=== PATIENT | female | born 1950 | race Caucasian/White ===

== ENCOUNTER 2019-05-09 09:05 | Day surgery (SDC) | payer OTHER ==
[2019-05-09] MEDS ORDERED: Ringers Lactate 1,000 ML IV ONE (09:31)
[2019-05-09] MEDS ORDERED: NA CHLORIDE 0.9% 1,000 ML ONE (09:46)
[2019-05-09] MEDS ORDERED: LIDOCAINE 1% MPF 5 ML VIAL ONE (11:04)
[2019-05-09] MEDS ORDERED: ETOMIDATE 20 MG/10 ML VIAL IV ONE (11:04)
[2019-05-09] MEDS ORDERED: MIDAZOLAM HCL 2 MG/2 ML INJ ONE (11:04)
[2019-05-09] MEDS ORDERED: FENTANYL CITR 100 MCG/2 ML ONE (11:04)
--- NOTE | 2019-05-09 11:29 | ENDO RPT ---
[address], [address] EGD PROCEDURE REPORT EXAM DATE: 05/09/2019 PATIENT NAME: Chica Street MR#: [id number] BIRTHDATE: 1950 ATTENDING: Jan Gallegos Dr STATUS: outpatient SCIENTIFIC LABORATORY SUPERVISOR: Emmy Pa IT OPERATIONS MANAGER, Sangita Bazzi IT OPERATIONS MANAGER, Gabriela Hood RN, and Erika Adams RN INDICATIONS: The patient is a 68 yr old Female here for an EGD due to GERD and weight loss PROCEDURE PERFORMED: EGD with biopsy MEDICATIONS: Per Anesthesia. TOPICAL ANESTHETIC: none CONSENT: The patient understands the risks and benefits of the procedure and understands that these risks include, but are not limited to: sedation, allergic reaction, infection, perforation and/or bleeding. Alternative means of evaluation and treatment include, among others: physical exam, x-rays, and/or surgical intervention. The patient elects to proceed with this endoscopic procedure. DESCRIPTION OF PROCEDURE: During intra-op preparation period all mechanical medical equipment was checked for proper function. Hand hygiene and appropriate measures for infection prevention was taken. Procedure, possible complications, and alternatives including but not limited to the possibility of bleeding, perforation, tear, infection, sepsis, need for surgery, need for blood transfusion, and anesthesia related complications were explained to the patient. After the risks, benefits and alternatives of the procedure were thoroughly explained, Informed consent was verified, confirmed and timeout was successfully executed by the treatment team. The patient was placed in the left lateral position. The patient was anesthetized with topical anesthesia. Through the anesthetized oropharyngeal area, the scope was passed without any difficulty. The [id number] ([id number]) endoscope was introduced through the mouth and advanced to the second portion of the duodenum. Retroflexed views revealed a small hiatal hernia. The gastroscope was then slowly withdrawn and removed. Retained food was present in the body of the stomach. Mild gastritis was found in the antrum. Multiple biopsies were obtained and sent to pathology. 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 ADVERSE EVENTS: There were no complications. IMPRESSIONS: 1. Moderate amount of retained solid food in the body>>antrum of the stomach >bulb of duodenum 2. Mild gastritis in the antrum, s/p biopsies 3. 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 await biopsy results 2. acid suppression therapy REPEAT EXAM: Return in 1 month(s) for EGD. Jan Gallegos Dr eSigned: Jan Gallegos Dr 05/09/2019 11:28 AM cc: Carlos Fajardo CPT CODES: ICD9 CODES: PATIENT NAME: Chica Street MR#: [id number]
[2019-05-09 12:56] VITALS: TEMP 96.7
[2019-05-09 12:58] VITALS: BP 117/62; O2SAT 99
== END 2019-05-09 12:10 | disposition home or self-care (01) ==
LOC: OR 09:05
PROVIDERS: ATTEND Internal Medicine Gastroenterology
PROC: 0DB68ZX Excision of Stomach, Via Natural or Artificial Opening Endoscopic, Diagnostic (ICD-10-PCS; principal; 2019-05-09 10:45)
DX: K21.9 Gastro-esophageal reflux disease without esophagitis (principal); K29.50 Unspecified chronic gastritis without bleeding; K31.819 Angiodysplasia of stomach and duodenum without bleeding; K44.9 Diaphragmatic hernia without obstruction or gangrene; K58.9 Irritable bowel syndrome, unspecified; R63.4 Abnormal weight loss; Z68.41 Body mass index [BMI] 40.0-44.9, adult; E11.9 Type 2 diabetes mellitus without complications; I10 Essential (primary) hypertension; G47.33 Obstructive sleep apnea (adult) (pediatric); F41.9 Anxiety disorder, unspecified; F32.9 Major depressive disorder, single episode, unspecified; M19.90 Unspecified osteoarthritis, unspecified site; M26.609 Unspecified temporomandibular joint disorder, unspecified side; Z87.11 Personal history of peptic ulcer disease; Z95.1 Presence of aortocoronary bypass graft; Z87.891 Personal history of nicotine dependence; Z88.0 Allergy status to penicillin; Z88.3 Allergy status to other anti-infective agents; Z88.6 Allergy status to analgesic agent; Z88.8 Allergy status to other drugs, medicaments and biological substances; Z91.041 Radiographic dye allergy status
CPT/HCPCS: 88312; 82947; 88305; 43239; J2250; J3010; J7120; J7030